=== PATIENT | female | born 1945 | race Caucasian/White ===

== ENCOUNTER → 2016-12-09 | Outpatient (CLI) | payer MEDICARE ==
[2016-12-09 08:51] LABS: BASOPHILS % (AUTO) 0 % (0-2); EOSINOPHILS # (AUTO) 0.2 10^3uL; EOSINOPHILS % (AUTO) 3 % (0-4); LYMPHOCYTES # (AUTO) 1.7 X10^3; MEAN CORPUSCULAR HEMOGLOBIN 29.3 PG (26.0-34.0); MEAN CORPUSCULAR HGB CONC 32.7 g/dL (31.0-37.0); MEAN CORPUSCULAR VOLUME 90 FL (80-100); MEAN PLATELET VOLUME 9.1 FL (6.0-9.5); MONOCYTES # (AUTO) 0.7 X10^3; MONOCYTES % (AUTO) 11 % (3-11); NEUTROPHILS # (AUTO) 3.4 X10^3; NEUTROPHILS % (AUTO) 57 % (51-67); PLATELET COUNT 254 10^3uL (150-450); WHITE BLOOD COUNT 6.01 10^3uL (4.0-11.0)
[2016-12-09 09:25] LABS: ALBUMIN 4.2 g/dL (3.4-5.0); ANION GAP 15.3 MEQ/L (3-15); CALCULATED IONIZED CALCIUM 4.3 mg/dL (3.8-4.6); TOTAL PROTEIN 7.3 g/dL (6.4-8.5)
--- NOTE | 2016-12-09 09:46 | Diagnostic Imaging Report ---
INDICATION: Breast cancer. 12/09/2016 2 views. COMPARISON: 12/08/2015. 12/05/2014. 12/03/2013. FINDINGS: The cardiac silhouette size is top normal. The osvaldo are negative and unchanged. The pulmonary vascularity is not congested. Left mastectomy changes are present. There is no pleural effusion or airspace disease demonstrated. No osteoblastic or significant osseous lesion is identified. IMPRESSION: 1. No significant chest x-ray abnormality. No significant change from comparisons. Dictated by: Dictated on workstation # [id number]
--- NOTE | 2016-12-09 16:55 | Diagnostic Imaging Report ---
Indication: Personal history of breast cancer. Comparisons: 12/08/2015, 12/05/2014, 12/03/2013. Unilateral right digital mammography with computer-assisted detection is performed. The breast is mildly dense. Benign calcification is present. The tissue pattern is unchanged. There is no dominant mass or suspicious calcification. Impression: Negative for malignancy. Followup in one year ACR BI-RADS Category 1: Negative Result letter will be mailed to the patient. Note: At least 10% of breast cancer is not imaged by mammography. Dictated by: Dictated on workstation # [id number]
== END ==
LOC: RAD 08:31
PROVIDERS: ATTEND Internal Medicine Hematology & Oncology
DX: Z85.3 Personal history of malignant neoplasm of breast (principal)
CPT/HCPCS: 36415; 71020; 80053; 83615; 85025; 86300; G0206